=== PATIENT | female | born 1955 | race Caucasian/White ===

== ENCOUNTER → 2016-07-14 | Outpatient (CLI) | payer BC ==
--- NOTE | 2016-07-14 14:21 | MAMMOGRAPHY REPORT ---
UNILATERAL RIGHT DIGITAL DIAGNOSTIC MAMMOGRAM TOMOSYNTHESIS WITH CAD: 07/14/2016 CLINICAL HISTORY: 61-year-old woman presents for follow-up in the right breast. She is [address] atus post treatment for right breast cancer and 6 months status post benign stereotactic biopsy of m icrocalcifications near the surgical site in the right breast. TECHNIQUE: Right breast CC and MLO 2-D digital and tomosynthesis images; spot magnification right CC and ML views were obtained. Current study was also evaluated with a Computer Aided Detection (CAD) system. COMPARISON: Comparison is made to exams dated: 01/21/2016 mammogram, 11/14/2014 ultrasound, 11/14/2014 mammogram, 10/16/2014 mammogram, 08/04/2013 mammogram, and 08/01/2012 mammogram - [facility]. BREAST COMPOSITION: There are scattered areas of fibroglandular density in the right breast. FINDINGS: There is expected architectural distortion, and associated surgical clips in the lower inn er posterior right breast, at the site of prior lumpectomy. A dumbbell-shaped metallic biopsy marke r remains in place within the right lower inner quadrant as well, from previous benign stereotactic biopsy. No new suspicious mass, architectural distortion or cluster of microcalcifications is seen within the right breast. IMPRESSION: ACR-BI-RADS CATEGORY 3: PROBABLY BENIGN Stable postsurgical and post biopsy changes in the right lower inner quadrant, without mammographic evidence of malignancy. Annual bilateral mammography is due in 6 months. These results and recomme ndations were discussed with the patient at the time of the exam. Approximately 10% of breast cancers are not detected with mammography. A negative mammographic repor t should not delay biopsy if a clinically suggestive mass is present. Komal Marin M.D. ay/:07/14/2016 10:15:02 Keypunch Operator: Fatou FERREIRA(Nikunj)(Kaylah), [facility] letter sent: Follow Up Recommended 3 BI-RADS Code: ACR-BI-RADS Category 3: Probably Benign
== END | disposition home or self-care (01) ==
LOC: C.MAMM 09:20
PROVIDERS: ATTEND Surgery
DX: Z08 Encounter for follow-up examination after completed treatment for malignant neoplasm (principal); Z85.3 Personal history of malignant neoplasm of breast

== ENCOUNTER → 2017-01-11 | Outpatient (CLI) | payer BC ==
--- NOTE | 2017-01-11 15:12 | MAMMOGRAPHY REPORT ---
BILATERAL DIGITAL DIAGNOSTIC MAMMOGRAM TOMOSYNTHESIS WITH CAD AND TARGETED RIGHT ULTRASOUND: 7 CLINICAL HISTORY: 61-year-old woman with a personal history of right breast cancer, approximately 2 y ears status post breast conservation treatment. Also history of benign stereotactic biopsy near the surgical site in the right breast. Annual bilateral screening exam. TECHNIQUE: Bilateral CC and MLO 2-D digital and tomosynthesis images were obtained. Spot magnificati on right CC and ML views were obtained. A spot compression right CC 2-D digital and tomosynthesis im aging was also obtained. Current study was also evaluated with a Computer Aided Detection (CAD) syst em. COMPARISON: Comparison is made to exams dated: 07/14/2016 mammogram, 01/09/2016 mammogram, 11/14/2014 m ammogram, 10/16/2014 mammogram, 08/04/2013 mammogram, and 08/01/2012 mammogram - [facility]. BREAST COMPOSITION: There are scattered areas of fibroglandular density in both breasts. FINDINGS: There is expected architectural distortion and associated surgical clips in the 3:00 middle to posterior right breast, at the site of prior lumpectomy. In the bowel-shaped metallic biopsy mar ker is also seen at the surgical site. There is a 5 mm nodular asymmetry in the lateral posterior ri ght breast on the CC view but is increasingly conspicuous compared to prior mammograms. An additiona l spot compression view including tomosynthesis images was obtained in this area and the asymmetry pa rtially effaces with the supplemental mammographic views. No definite persistent mass on the tomosyn thesis images. Further evaluation with ultrasound was performed. No other new suspicious mass, arch itectural distortion or cluster of microcalcifications is seen bilaterally. Targeted ultrasound was performed throughout the lateral right breast. Normal fibroglandular tissue is seen without a discrete solid or cystic mass. IMPRESSION: ACR-BI-RADS CATEGORY 3: PROBABLY BENIGN, TARGETED ULTRASOUND ACR-BI-RADS CATEGORY 3: PRO BABLY BENIGN 1. There are stable, expected post treatment changes in the right breast. 2. A 5 mm nodular asymmetry in the lateral posterior right breast partially effaces with additional supplemental mammographic views. There is no definite persistent mass on the corresponding tomosynth esis images, and no suspicious sonographic correlate was seen. This most likely represented normal o verlapping fibroglandular tissue, however, a short interval follow-up diagnostic right mammogram and possible ultrasound is recommended to ensure stability in 6 months. 3. Stable mammographic appearance of the left breast, without mammographic evidence of malignancy. Advise follow-up in 1 year. Approximately 10% of breast cancers are not detected with mammography. A negative mammographic report should not delay biopsy if a clinically suggestive mass is present. Komal Marin M.D. ay/:01/11/2017 12:29:03 Manager Of Disaster Recovery: Fatou FERREIRA(R)(M), [facility] letter sent: Follow Up Recommended 3 BI-RADS Code: ACR-BI-RADS Category 3: Probably Benign Ultrasound BI-RADS: ACR-BI-RADS Category 3: Pr obably Benign
== END | disposition home or self-care (01) ==
LOC: C.MAMM 10:52
PROVIDERS: ATTEND Surgery
DX: N64.89 Other specified disorders of breast (principal); Z85.3 Personal history of malignant neoplasm of breast; Z08 Encounter for follow-up examination after completed treatment for malignant neoplasm

== ENCOUNTER → 2017-01-13 | Outpatient (CLI) | payer BC ==
[2017-01-13 13:17] LABS: BASO % 0.2 %; BASO ABS # 0.01 K/uL (0-0.2); COMPLETE YES; EOS % 3.9 %; HEMATOCRIT 43.9 % (37-47); IG% 0.2 %; LYMPH % 28.8 %; LYMPH ABS # 1.32 K/uL (1.2-3.4); MEAN CELL VOLUME 87.1 fL (80-100); MEAN CORPUSCULAR HEMOGLOBIN 28.4 pg (25-34); MEAN CORPUSCULAR HGB CONC 32.6 g/dl (32-36); MEAN PLATELET VOLUME 10.5 fL (7.4-10.4); MONO % 5.9 %; PLATELET COUNT 219 K/uL (130-400); RED BLOOD COUNT 5.04 M/uL (4.2-5.4); WHITE BLOOD COUNT 4.58 K/uL (4.8-10.8)
[2017-01-13 13:37] LABS: BLOOD UREA NITROGEN 13 mg/dl (7-18); BUN/CREATININE RATIO 19.1 (10-20); CALCIUM 9.1 mg/dl (8.5-10.1); CARBON DIOXIDE 25 mmol/L (21-32); CHLORIDE 108 mmol/L (98-107); CHOLESTEROL 177 mg/dl (0-200); CREATININE 0.67 mg/dl (0.60-1.20); GLUCOSE 95 mg/dl (70-99); SODIUM 141 mmol/L (136-145)
[2017-01-13 13:47] LABS: ALB/GLOB RATIO 1.5 (0.9-2); ALKALINE PHOSPHATASE 91 U/L (45-117); ALT/SGPT 30 U/L (12-78); AST/SGOT 22 U/L (15-37); CHOLESTEROL/HDL RATIO 3.8; HDL CHOLESTEROL 47 mg/dl; LDL CHOLESTEROL CALCULATED 98 mg/dl; TRIGLYCERIDES 161 mg/dl (0-150); VERY LOW DENSITY LIPOPROT CALC 32 mg/dl
== END | disposition home or self-care (01) ==
LOC: C.LABMFLN 08:11
PROVIDERS: ATTEND Family Medicine
DX: C50.919 Malignant neoplasm of unspecified site of unspecified female breast (principal); E78.5 Hyperlipidemia, unspecified; E03.9 Hypothyroidism, unspecified; R53.83 Other fatigue

== ENCOUNTER → 2017-07-15 | Outpatient (CLI) | payer BC ==
--- NOTE | 2017-07-15 15:54 | MAMMOGRAPHY REPORT ---
UNILATERAL RIGHT DIGITAL DIAGNOSTIC MAMMOGRAM TOMOSYNTHESIS WITH CAD: 07/15/2017 CLINICAL HISTORY: History of right breast cancer status post lumpectomy November 2014. Also with a histo ry of a benign stereotactic biopsy near the surgical bed in the right breast. The patient presents f or short interval follow-up of the right breast asymmetry. She reports no palpable lumps or other co mplaints. TECHNIQUE: Breast tomosynthesis in addition to standard 2D mammography was performed. Current study was also evaluated with a Computer Aided Detection (CAD) system. Right CC and MLO 2-D and tomosynthe sis images and spot magnification right cc and ML views were obtained. COMPARISON: Comparison is made to exams dated: 01/11/2017 ultrasound, 01/11/2017 mammogram, 07/14/2016 mammogram, 01/09/2016 mammogram, 11/14/2014 mammogram, and 10/16/2014 mammogram - [facility]. BREAST COMPOSITION: There are scattered areas of fibroglandular density in the right breast. FINDINGS: The previously described asymmetry seen within the right lateral breast on the CC view is less prominent on the current exam and has the appearance of normal fibroglandular tissue on the curr ent exam. The remainder of the right breast is stable compared to prior exams, without suspicious ma sses, calcifications, or areas of architectural distortion noted. There are stable post surgical luana nges in the right medial breast from prior lumpectomy, including stable architectural distortion and surgical clips at the lumpectomy bed. A biopsy clip from prior benign stereotactic biopsy is also se en at the surgical bed. An asymmetry seen within the right superior posterior breast on the MLO view is stable dating back to at least the December 2015 exam and has the appearance of normal fibroglandular tissue on the tomosynthesis images. IMPRESSION: ACR BI-RADS CATEGORY 2: BENIGN The right lateral breast asymmetry is less prominent and is benign and compatible with normal fibrogl andular tissue. There is no mammographic evidence of malignancy in the right breast. The patient is due for annual mammography December 2017; I would recommend the patient remain a diagnostic patient for this exam in case any additional images of the lumpectomy bed need to be obtained. The patient has been verbally notified of the results. Approximately 10% of breast cancers are not detected with mammography. A negative mammographic report should not delay biopsy if a clinically suggestive mass is present. Angela Shipman M.D. ah/:07/15/2017 10:57:10 Sole Conforming Machine Operator: Fatou VALDIVIA)(Kaylah), [facility] letter sent: Normal 1/2 BI-RADS Code: ACR BI-RADS Category 2: Benign
== END | disposition home or self-care (01) ==
LOC: C.MAMM 10:31
PROVIDERS: ATTEND Family Medicine
DX: Z08 Encounter for follow-up examination after completed treatment for malignant neoplasm (principal); C50.911 Malignant neoplasm of unspecified site of right female breast

== ENCOUNTER → 2017-08-16 | Outpatient (CLI) | payer BC ==
--- NOTE | 2017-08-16 11:07 | DIAGNOSTIC IMAGING REPORT ---
LEFT HIP STEROID INJECTION UNDER FLUOROSCOPIC GUIDANCE CLINICAL HISTORY: Degenerative joint disease. Left hip pain. PROCEDURE: The risks, benefits, and alternatives to the procedure were discussed with the patient. Written informed consent was obtained. The patient was placed supine on the fluoroscopy table, and a left hip injection was performed under fluoroscopic guidance. The area was prepped and draped in the usual sterile fashion. The skin and soft tissues anesthetized with local 1% lidocaine. The left hip joint was accessed utilizing a 22-gauge needle, and intra-articular positioning was confirmed by injecting a small volume of Optiray 300. The prescribed dosage of 2 cc of betamethasone and 8 cc of 0.5%. bupivacaine was then injected into the joint space. The procedure was well tolerated and without immediate complication. The patient left the department in satisfactory condition. FLUOROSCOPY TIME: 6 seconds. IMPRESSION: Unremarkable steroid injection of the left the under fluoroscopic guidance. Electronically signed by: Leif Arellano M.D. 08/16/2017 11:06 AM Dictated Date/Time: 08/16/2017 11:04 AM
== END | disposition home or self-care (01) ==
LOC: C.RADBC 09:47
PROVIDERS: ATTEND Orthopaedic Surgery
DX: M16.12 Unilateral primary osteoarthritis, left hip (principal)

== ENCOUNTER → 2018-01-12 | Outpatient (CLI) | payer BC ==
[~2018-01-12] MED LIST: ACET-1311 PO; ASPEC325 PO; CETI10TA84 PO; CHOL1000 PO; DIPH25CA65 PO; IBUP-103 PO; LEVO25TA5 PO; MULT-506 PO; PANT40TA PO; ROSU20TA24 PO; ULT50X PO; VITA400C28 PO
--- NOTE | 2018-01-13 08:11 | MAMMOGRAPHY REPORT ---
BILATERAL DIGITAL DIAGNOSTIC MAMMOGRAM TOMOSYNTHESIS WITH CAD AND RIGHT ULTRASOUND: 01/12/2018 CLINICAL HISTORY: 62-year-old woman with a history of prior right breast cancer status post breast co nservation treatment presents at time of annual bilateral screening exam. Recently, her new provider felt possible thickening near her area of surgery on clinical breast exam. She also underwent stereot actic biopsy of calcifications near the lumpectomy bed in the right breast, which yielded benign path ology results. TECHNIQUE: The study was acquired using full field digital technology and interpreted from soft copy. Tomosynthesis (3D imaging) was done in the CC and MLO projections. A C-view reconstruction was then done. Current study was also evaluated with a Computer Aided Detection (CAD) system. COMPARISON: Comparison is made to exams dated: 07/15/2017 mammogram, 01/11/2017 mammogram, 07/14/2016 m ammogram, 01/21/2016 mammogram, 01/09/2016 mammogram, and 11/28/2014 mammogram - [facility]. BREAST COMPOSITION: There are scattered areas of fibroglandular density in both breasts. FINDINGS: There is expected architectural distortion, skin thickening and irregularity, surgical clip s and a double-shaped biopsy marker clip in the lower inner posterior right breast, denoting the site of prior surgeries and biopsy. No new suspicious masses, calcifications, areas of architectural dis tortion or unexpected skin thickening is noted bilaterally. Targeted ultrasound was performed in the area of thickening pointed out by the patient, near the skin surgical scar in the 3:00 through 5:00 right breast. There is sonographic evidence of linear hypoec hoic scar tissue, without evidence of a suspicious solid or cystic mass. IMPRESSION: , ULTRASOUND ACR BI-RADS CATEGORY 2: BENIGN Stable bilateral mammograms including postsurgical and postbiopsy changes in the right breast, withou t mammographic evidence of malignancy bilaterally. There is no targeted sonographic evidence of olivia gnancy in the right breast in the area of thickening identified by the patient's provider. Therefore , continued clinical follow-up is recommended, as biopsy of a clinically suspicious mass should not b e precluded by negative imaging. Otherwise recommend routine screening mammography in 1 year (12/2018 ). These results and recommendation were discussed with the patient at the time of the exam. Approximately 10% of breast cancers are not detected with mammography. A negative mammographic report should not delay biopsy if a clinically suggestive mass is present. Komal Marin M.D. ay/:01/12/2018 16:43:33 [employer]: RT Jennifer(R)(M), [facility]; Madi Cobb [facility] letter sent: Normal 1/2 OVERALL STUDY BIRADS: 2 Benign
== END ==
LOC: C.MAMM 10:25
PROVIDERS: ATTEND Surgery
DX: Z85.3 Personal history of malignant neoplasm of breast (principal); N64.59 Other signs and symptoms in breast; Z98.890 Other specified postprocedural states

== ENCOUNTER → 2018-01-28 | Outpatient (CLI) | payer BC ==
[2018-01-28 12:32] LABS: BASO % 0.4 %; BASO ABS # 0.02 K/uL (0-0.2); EOS % 2.4 %; EOS ABS # 0.13 K/uL (0-0.5); HEMATOCRIT 41.3 % (37-47); HEMOGLOBIN 13.8 g/dL (12.0-16.0); IG# 0.02 K/uL (0.00-0.02); LYMPH % 26.9 %; LYMPH ABS # 1.43 K/uL (1.2-3.4); MEAN CELL VOLUME 86.8 fL (80-100); MEAN CORPUSCULAR HGB CONC 33.4 g/dl (32-36); MEAN PLATELET VOLUME 10.5 fL (7.4-10.4); MONO % 5.8 %; MONO ABS # 0.31 K/uL (0.11-0.59); NEUT % 64.1 %; NEUT ABS # 3.41 K/uL (1.4-6.5); PLATELET COUNT 260 K/uL (130-400); RED CELL DISTRIBUTION WIDTH CV 14.1 % (11.5-14.5); RED CELL DISTRIBUTION WIDTH SD 44.8 fL (36.4-46.3); WHITE BLOOD COUNT 5.32 K/uL (4.8-10.8)
[2018-01-28 12:59] LABS: ALBUMIN 4.3 gm/dl (3.4-5.0); ALKALINE PHOSPHATASE 88 U/L (45-117); ALT/SGPT 25 U/L (12-78); AST/SGOT 21 U/L (15-37); BLOOD UREA NITROGEN 14 mg/dl (7-18); CALCIUM 9.6 mg/dl (8.5-10.1); CARBON DIOXIDE 25 mmol/L (21-32); CHOLESTEROL 172 mg/dl (0-200); CREATININE 0.65 mg/dl (0.60-1.20); GLUCOSE 102 mg/dl (70-99); LDL CHOLESTEROL CALCULATED 91 mg/dl; SODIUM 139 mmol/L (136-145); TOTAL PROTEIN 7.3 gm/dl (6.4-8.2)
== END | disposition home or self-care (01) ==
LOC: C.LABMFLN 10:31
PROVIDERS: ATTEND Family Medicine
DX: E78.5 Hyperlipidemia, unspecified (principal); E03.9 Hypothyroidism, unspecified; Z96.649 Presence of unspecified artificial hip joint

== ENCOUNTER 2025-06-15 05:35 | Observation (INO) ==
--- NOTE | 2025-06-15 06:48 | Emergency Department Note ---
Impression & Plan Colitis, Bloody stools, Abdominal pain, LLQ ED Provider Note Provider: Raji Ames MD CHIEF COMPLAINT: Lower abdominal pain, bloody stools HISTORY OF PRESENT ILLNESS: Patient is a 70-year-old female significant past medical history of breast cancer, hypertension, and hypothyroidism presenting here today reporting waking suddenly around 2 AM with sudden severe lower left lower abdominal pain. Has had a bloody stool here. Some nausea but no vomiting. No chest pain or shortness of breath. He is feeling cold. No history of similar. No trauma. Went to bed well last night. No suspect food intake, recent international travel, or sick contacts. He is on aspirin but no other blood thinners. Patient is quite anxious and tearful she has not had pain like this before. Has had a prior tubal as well as an appendectomy. Has not take anything for pain prior to arrival. Did take some Pepto-Bismol without improvement. Reports that they did just come back from [facility] to the [facility]. They do have well water at home. is well. PAST MEDICAL HISTORY: As noted above MEDICATIONS: Reviewed home medications SOCIAL HISTORY: PHYSICAL EXAM: GENERAL: alert and oriented in no acute distress on stretcher, tearful at times Head: normocephalic and atraumatic EYES: No injection, purulent discharge or icterus. NECK: Trachea midline. Supple. ENT: Mucous membranes pink and moist. LUNGS: Airway patent. No retractions or tachypnea HEART: Regular rate and rhythm. No chest wall tenderness ABDOMEN: Soft significant left lower quadrant tenderness. SKIN: Acyanotic, warm, dry, without rashes EXTREMITIES: Without swelling, tenderness or deformity NEUROLOGICAL: No focal deficits. No aphasia. No facial droop or slurred speech. Ambulatory. EK beats. Normal sinus rhythm. No PVC or PAC. No acute ST segment elevation or depression with some diffuse T wave inversions. QTc 442. CONTINUOUS CARDIAC MONITORING: was ordered and showed a heart rate of bpm in Patient's laboratory studies and imaging reviewed. Differential includes Appendicitis, ovarian cyst, ovarian torsion, ectopic , TOA, PID, infections, diverticulitis, UTI, obstruction, mesenteric ischemia, aortic pathology, inflammatory bowel disease, renal colic, PUD, pancreatitis, biliary pathology, hernia, volvulus, constipation, as well as other pathologies. IMPRESSION/MEDICAL DECISION MAKING: Patient is significant left lower quadrant pain. Has had some bleeding. Not on blood thinners. No trauma. No suspect food intake, sick contact, or travel. Question this could be diverticulitis but she does have a history. Will obtain CT imaging abdomen pelvis. Lower suspicion for dissection but could possibly be ischemia given the severity of her pain. Given some fluids and lactate was obtained and sent for CT angiogram of the abdomen pelvis. Doubt this represents a significant upper GI bleed given lack of risk factors as well as location of her pain. Urinalysis here question with little bit of blood and some bacteria. Blood work here with leukocytosis 14 4. No anemia. No severe electrolyte abnormalities noted but an elevated lactate of 3.1. Again received a liter of IV fluid here. No evidence of hepatitis or pancreatitis. Troponin undetectably low. CT scan per radiology report with evidence of colitis. Given this and the questionable urine we will cover with antibiotics. She is in a fair amount of some discomfort. Mild lactate elevation. No ischemic findings noted on CT report. Will bring in for hydration and pain control and cover with Zosyn. Case was discussed with the [facility] hospitalist team. DIAGNOSIS: Colitis, abdominal pain, bloody stools DISPOSITION: Hospitalist will evaluate Patient was agreeable with this plan. Past Med/Surg History Problem List (Updated 06/15/25 @ 09:46 by Raji Ames M.D.) Abdominal pain, LLQ (Acute) Bloody stools (Acute) Colitis (Acute) Prediabetes Postmenopausal Greater trochanteric bursitis of right hip Hypertension Abnormal electrocardiogram (Acute) Acid reflux disease (Acute) Adenomatous polyp of colon (Acute) Breast cancer (Acute) lumptectomy and xrt no medical therapy Hyperlipidemia (Acute) Hypothyroidism (Acute) More than 50 percent stenosis of right internal carotid artery (Acute) Medical History No pertinent past medical history Surgical History H/O partial mastectomy Status post hip replacement H/O dilation and curettage S/P tubal ligation H/O colonoscopy S/P appendectomy Family History Father Emphysema, unspecified Mother FH: colonic polyps Colonic polyp Sister FH: colonic polyps Colonic polyp Denies family history of Ovarian cancer Prostate cancer Myocardial infarction Breast cancer Colorectal cancer Social History Smoking Status: Never smoker Second Hand Exposure: Yes; Do You Dip or Chew Tobacco: No; Hx Alcohol Use: Yes Alcohol type: wine Alcohol Intake Frequency: 2-3 x/Week Hx Substance Use: No Preferred Language: Spanish Visual Impairment: Limited Hearing Ability: Use of Hearing Aid marital status: Current Living Situation: Spouse current occupational status: retired How many Children do You have: 1 Feels Safe at Home: Yes Childhood Exposure to Second-Hand Smoke: Yes Diet: low salt and regular caffeine: No during the past year weight has: remained stable Dental Care, Regularly: Yes Physical Activity Frequency: 1-2 Times per Week Physical Activity Frequency Comment: Rides bike, walking Seatbelt Use: always Sunscreen Use: Yes Do you think of yourself as: straight/heterosexual Gender Identity: Female Assistive Devices: Glasses and Hearing Aid - Bilateral Allergies Allergies Allergy/AdvReac Type Severity Reaction Status Date / Time morphine Allergy Unknown NAUSEA AND Verified 05/17/25 10:55 VOMITNG Home Meds Home Medications Medication Instructions Recorded Confirmed acetaminophen 500 mg tablet 1,000 mg PO Q6H PRN Pain 01/05/20 06/15/25 cetirizine 10 mg disintegrating 10 mg PO DAILY 01/05/20 06/15/25 tablet amoxicillin 500 mg tablet 2,000 mg PO DIRECTED PRN dental 06/15/25 06/15/25 jocelyn rosuvastatin 20 mg tablet 0 mg PO DAILY 06/15/25 06/15/25 Previous Rx's Medication Instructions Recorded cholecalciferol (vitamin D3) 25 1,000 units PO DAILY #90 caps 06/16/19 mcg (1,000 unit) capsule multivitamin 1 tab PO QAM #30 tabs 06/16/19 vitamin E (dl, acetate) 180 mg 400 units PO DAILY #30 caps 06/16/19 (400 unit) capsule aspirin 81 mg tablet,delayed 81 mg PO DAILY #90 tabs 01/31/20 release (Adult Low Dose Aspirin) ondansetron 4 mg disintegrating 4 mg PO Q6 PRN nausea and vomiting 05/08/22 tablet #20 tabs levothyroxine 50 mcg tablet 50 mcg PO DAILY #90 tabs 07/31/24 (Synthroid) pantoprazole 40 mg tablet,delayed 40 mg PO DAILY PRN gerd #90 tabs 11/16/24 release metformin 500 mg tablet,extended 500 mg PO DAILY #90 tabs 05/17/25 release 24 hr lisinopril 30 mg tablet 30 mg PO DAILY #90 tabs 05/29/25 Results & Data (ED) Vital Signs Vital Signs - 24 hr 06/15/25 05:41 06/15/25 05:54 06/15/25 06:15 Temperature 36.7 C Temperature Source Oral Pulse Rate 77 72 Pulse Rate [Apical] 70 Pulse Rate from SpO2 Sensor Pulse Rhythm [Apical] Regular Respiratory Rate 18 18 Respiratory Effort / Characteristics Non-Labored Spontaneous Respiratory Depth Normal Respiratory Pattern Regular Blood Pressure 134/72 Blood Pressure [Right Arm] 145/77 H Blood Pressure Mean 92 Blood Pressure Mean [Right Arm] 99 Blood Pressure Position Sitting Pulse Oximetry 95 96 Oxygen Delivery Method Room Air Room Air Sepsis Recent Fever Within 48 Hours No Sepsis New/Unexplained Change in Mental Status N/A Sepsis Action Taken by Nursing No Action Required 06/15/25 06:15 06/15/25 08:00 06/15/25 10:30 Temperature Temperature Source Pulse Rate 71 Pulse Rate [Apical] 68 Pulse Rate from SpO2 Sensor 79 Pulse Rhythm [Apical] Respiratory Rate 18 18 Respiratory Effort / Characteristics Non-Labored Spontaneous Respiratory Depth Normal Respiratory Pattern Blood Pressure 173/75 H Blood Pressure [Right Arm] 139/75 Blood Pressure Mean 107 Blood Pressure Mean [Right Arm] 96 Blood Pressure Position Pulse Oximetry 93 97 98 Oxygen Delivery Method Room Air Room Air Room Air Sepsis Recent Fever Within 48 Hours Sepsis New/Unexplained Change in Mental Status Sepsis Action Taken by Nursing 06/15/25 11:00 Temperature Temperature Source Pulse Rate Pulse Rate [Apical] Pulse Rate from SpO2 Sensor 78 Pulse Rhythm [Apical] Respiratory Rate Respiratory Effort / Characteristics Respiratory Depth Respiratory Pattern Blood Pressure 152/87 H Blood Pressure [Right Arm] Blood Pressure Mean 108 Blood Pressure Mean [Right Arm] Blood Pressure Position Pulse Oximetry 98 Oxygen Delivery Method Sepsis Recent Fever Within 48 Hours Sepsis New/Unexplained Change in Mental Status Sepsis Action Taken by Nursing Laboratory Data 06/15/25 07:37 06/15/25 07:37 Lab Results 12/19/25 12/19/25 12/19/25 Range/Units 06:33 07:37 07:39 WBC 14.45 H (4.8-10.8) K/ul RBC 4.87 (4.20-5.40) M/uL Hgb 14.3 (12.0-16.0) g/dL POC Hgb 14.6 (12.0-16.0) g/dl Hct 41.7 (37.0-47.0) % POC Hct 43 (37-47) % MCV 85.6 (80.0-100.0) fL MCH 29.4 (25.0-34.0) pg MCHC 34.3 (32.0-36.0) g/dL RDW Std Deviation 42.9 (36.4-46.3) fL RDW Coeff of R[place] 13.8 (11.5-14.5) % Plt Count 188 (130-400) K/uL MPV 10.6 (9.4-12.4) fL Immature Gran % (Auto) 0.3 % Neut % (Auto) 89.4 % Lymph % (Auto) 5.8 % [place] % (Auto) 4.2 % Eos % (Auto) 0.1 % Baso % (Auto) 0.2 % Neut # (Auto) 12.92 H (1.40-6.50) K/uL Lymph # (Auto) 0.84 L (1.20-3.40) K/uL [place] # (Auto) 0.60 H (0.11-0.59) K/uL Eos # (Auto) 0.02 (0.00-0.50) K/uL Baso # (Auto) 0.03 (0.00-0.20) K/uL Immature Gran # (Auto) 0.04 (0.01-0.20) K/uL PT 11.0 (9.0-12.0) Seconds INR 1.0 (0.9-1.1) POC Sodium 141 (135-144) mmol/L Sodium 139 (136-145) mmol/L POC Potassium 3.7 (3.3-5.0) mmol/L Potassium 3.9 (3.5-5.1) mmol/L POC Chloride 107 (101-112) mmol/L Chloride 107 (98-107) mmol/L Carbon Dioxide 21 (21-32) mmol/L POC Total CO2 19 L (24-31) mmol/L Anion Gap 11 (3-11) POC Anion Gap 20.0 (16-25) mmol/L POC BUN 25 H (7-18) mg/dl BUN 24 H (6-23) mg/dl Creatinine 0.81 (0.6-1.2) mg/dl POC Creatinine 0.8 (0.6-1.3) mg/dl Est Cr Clr Drug Dosing 68.7 ml/min eGFR 78.53 BUN/Creatinine Ratio 29.6 H (10-20) Glucose 139 H (70-99(Fasting)) mg/dl POC Glucose (other) 123 H (70-99) mg/dl Lactate 3.1 H* (0.4-2.0) mmol/L Calcium 9.4 (8.6-10.3) mg/dl POC Ioniz Calcium Gretchen 1.12 (1.12-1.32) mmol/l Total Bilirubin 0.6 (0.2-1.0) mg/dl AST 21 (13-39) U/L ALT 17 (7-52) U/L Alkaline Phosphatase 53 (34-104) U/L Troponin I High Sens < 2.3 (0-14) pg/ml Total Protein 6.6 (6.0-8.3) gm/dl Albumin 4.4 (3.4-5.0) gm/dl Globulin 2.2 L (2.5-4.0) gm/dl Albumin/Globulin Ratio 2.0 (0.9-2) Lipase 9 L (11-82) U/L Urine Color Yellow Urine Appearance Clear (Clear) Urine pH 5.0 (4.5-7.5) Ur Specific [place] 1.014 (1.000-1.030) Urine Protein 1+ H (Negative) Urine Glucose (UA) Negative (Negative) Urine Ketones Trace H (Negative) Urine Blood 3+ H (Negative) Urine Nitrite Negative (Negative) Urine Bilirubin Negative (Negative) Urine Urobilinogen Negative (Negative) Ur Leukocyte Esterase 1+ H (Negative) Urine WBC (Auto) 0-5 (0-5) /hpf Urine RBC (Auto) 3-5 H (0-2) /hpf U Hyaline Cast (Auto) 6-10 H (0-2) /lpf U Epithel Cells (Auto) 3-5 H (0-2) /hpf Urine Bacteria (Auto) 3+ H (None Seen) Urine Comment Administered Medications Discontinued Medications Fentanyl Citrate (Fentanyl Citrate Pf 100 Mcg/2 Ml Vial) 50 mcg IV NOW STA Stop: 06/15/25 06:45 Last Admin: 06/15/25 07:34 Dose: 50 mcg Documented By: Fentanyl Citrate (Fentanyl Citrate Pf 100 Mcg/2 Ml Vial) 50 mcg IV NOW STA Stop: 06/15/25 09:45 Last Admin: 06/15/25 10:27 Dose: 50 mcg Documented By: Sodium Chloride (Nss) 1,000 mls @ 999 mls/hr IV .Q1H1M ONE Stop: 06/15/25 07:44 Last Infusion: 06/15/25 08:35 Dose: Infused Documented By: Admin: 06/15/25 07:34 Dose: 999 mls/hr Documented By: Piperacillin Sod/Tazobactam Sod (Zosyn) 4.5 gm in 100 mls @ 200 mls/hr IV NOW ONE; Protocol Stop: 06/15/25 10:13 Last Admin: 06/15/25 10:27 Dose: 200 mls/hr Documented By: HARLEY Ioversol (Optiray 320 125ml) 120 ml IV ONCE ONE Stop: 06/15/25 08:19 Last Admin: 06/15/25 08:19 Dose: 120 ml Documented By: CLEVE Ondansetron HCl (Ondansetron Inj 2 Mg/Ml 2 Ml Vial) 4 mg IV NOW STA Stop: 06/15/25 06:45 Last Admin: 06/15/25 07:32 Dose: 4 mg Documented By: HARLEY Imaging Data Radiologist's Impression: Abdomen/Pelvis CTA 06/15/25 06:43 CT ANGIOGRAM OF THE ABDOMEN AND PELVIS CLINICAL HISTORY: Left lower quadrant abdominal pain. Hematochezia. COMPARISON STUDY: Abdominal x-rays dated 05/08/2022. TECHNIQUE: Following the IV administration of 120 cc of Optiray 320, CT angiogram of the abdomen and pelvis was performed from the lung bases the proximal femora. Images are reviewed in the axial, sagittal, and coronal planes. 3-D MIPS images are created and assessed. IV contrast was administered without complication. A dose lowering technique was utilized adhering to the principles of ALARA. CT DOSE: 1501.05 mGy.cm FINDINGS: Lower chest: The heart is normal in size and without pericardial effusion. There is bibasilar scarring/atelectasis. No airspace consolidation or pleural effusion is identified. Liver: The contrast-enhanced liver is enlarged, measuring 18.5 cm in length. Attenuation is diffusely diminished indicating steatosis. There are foci of geographic fatty sparing. There is no intrahepatic biliary ductal dilatation. The main portal veins appear patent. Gallbladder: Unremarkable. Spleen: Normal in size and attenuation noting heterogeneous arterial phase enhancement. Pancreas: Unremarkable. Adrenal glands: Unremarkable. Kidneys: The contrast enhanced kidneys are normal in size and without hydronephrosis. The kidneys enhance symmetrically. Abdominal aorta and iliac arteries: The abdominal aorta is normal in course and caliber noting mild atherosclerotic calcification. No dissection is seen. The iliac arteries are widely patent bilaterally. Major branches of the abdominal aorta: The celiac trunk, superior mesenteric, and inferior mesenteric arteries are widely patent. Hepatic arterial anatomy is conventional. The splenic artery is patent. Single bilateral renal arteries are widely patent. Bowel: There is no bowel obstruction. There is a long segment of wall thickening and edema involving the left colon. This extends from the mid transverse colon to the rectosigmoid. There is mild pericolonic inflammation. The appearance is consistent with a nonspecific colitis. There are several duodenal diverticula. The appendix is not visualized. No intraluminal contrast is identified to suggest a site of active GI bleeding. Peritoneum: There is no intraperitoneal free air or abdominal ascites. There is a fat-containing umbilical hernia. Lymphadenopathy: None. Pelvic viscera: Evaluation of the left hip is degraded by streak artifact from a left hip arthroplasty. The bladder is normal as visualized. There are calcified uterine fibroids. No adnexal lesion is seen. Skeletal structures: The skeletal structures are osteopenic. There is mild lumbosacral spondylosis. Bilateral pars defects are seen at L5. Degenerative sclerosis is seen in the sacroiliac joints. No destructive bony lesions are seen. A left hip arthroplasty is in place. Soft tissues: Postsurgical changes suggested in the right breast. IMPRESSION: 1. Findings are consistent with a nonspecific colitis of the left colon. 2. Unremarkable CT angiogram of the abdominal aorta and its major branches. 3. The liver is enlarged and steatotic. 4. Fibroid uterus. 5. Additional findings as above. ACT 112: Negative or not required by law. Electronically signed by: Leif Arellano M.D. 06/15/2025 9:45 AM Discharge Plan Visit Data Chief Complaint: Abdominal Pain Stated Complaint: ABD PAIN ED Provider: Raji Ames Discharge Problem: Colitis, Bloody stools, Abdominal pain, LLQ Patient Disposition: Being Evaluated by Hospitalist Condition: Fair Forms Stand Alone Forms: [facility] Prescriptions Prescriptions: No Action aspirin [Adult Low Dose Aspirin] 81 mg tablet,delayed release (DR/EC) 81 mg PO DAILY Qty: 90 3RF Patient Comments: 06/14- otc unable to verify levothyroxine [Synthroid] 50 mcg tablet 50 mcg PO DAILY Qty: 90 3RF lisinopril 30 mg tablet 30 mg PO DAILY Qty: 90 3RF vitamin E (dl, acetate) 400 unit capsule 400 units PO DAILY Qty: 30 0RF Patient Comments: 06/14- otc unable to verify multivitamin tablet 1 tab PO QAM Qty: 30 0RF Patient Comments: 06/14- otc unable to verify cholecalciferol (vitamin D3) 25 mcg (1,000 unit) capsule 1,000 units PO DAILY Qty: 90 0RF Patient Comments: 06/14- otc unable to verify acetaminophen 500 mg tablet 1,000 mg PO Q6H PRN (Reason: Pain) Patient Comments: 06/14- otc unable to verify cetirizine 10 mg tablet,disintegrating 10 mg PO DAILY Patient Comments: 06/14- otc unable to verify metformin 500 mg tablet extended release 24 hr 500 mg PO DAILY Qty: 90 3RF pantoprazole 40 mg tablet,delayed release (DR/EC) 40 mg PO DAILY PRN (Reason: gerd) Qty: 90 3RF Patient Comments: 06/15- last filled 11/16 90 day supply #90 ondansetron 4 mg tablet,disintegrating 4 mg PO Q6 PRN (Reason: nausea and vomiting) Qty: 20 0RF amoxicillin 500 mg tablet 2,000 mg PO DIRECTED PRN (Reason: dental jocelyn) Patient Comments: 06/14-no fill history unable to verify Rx Instructions: 4 tabs 1 hour prior to procedure rosuvastatin 20 mg tablet 0 mg PO DAILY Patient Comments: 06/15-last filled 01/08 90 day supply #90 Referrals Referrals: Cari Ferrer DO [Primary Care Provider] -
[2025-06-15 06:59] LABS: Appearance Urine Clear (Clear); Bacteria Urine Automated 3+ (None Seen); Glucose Urine UA Negative (Negative); WBC Urine Automated 0-5 /hpf (0-5)
[2025-06-15] MEDS: ONDANSETRON INJ 2 MG/ML 2 ML VIAL IV STA (07:32)
[2025-06-15] MEDS: SODIUM CHLORIDE 0.9% 1,000 ML IV ONE (07:34)
[2025-06-15 08:04] LABS: Hematocrit (blood only) 41.7 % (37.0-47.0); Hemoglobin 14.3 g/dL (12.0-16.0); Immature Granulocytes # (auto) 0.04 K/uL (0.01-0.20); Immature Granulocytes % (auto) 0.3 %; Mean Corpuscular Hemoglobin 29.4 pg (25.0-34.0); Mean Corpuscular Volume 85.6 fL (80.0-100.0); Platelet Count 188 K/uL (130-400); RDW Standard Deviation 42.9 fL (36.4-46.3); Red Blood Count 4.87 M/uL (4.20-5.40); White Blood Count 14.45 K/ul (4.8-10.8)
[2025-06-15] MEDS: OPTIRAY 320 125ml IV ONE (08:19)
[2025-06-15 08:22] LABS: Alanine Aminotransferase 17.0 U/L (7-52); Albumin Globulin Ratio 2.0 (0.9-2); Albumin Level 4.4 gm/dl (3.4-5.0); Alkaline Phosphatase 53.0 U/L (34-104); Anion Gap 11.0 (3-11); Bilirubin,Total 0.6 mg/dl (0.2-1.0); Blood Urea Nitrogen 24.0 mg/dl (6-23); Calcium 9.4 mg/dl (8.6-10.3); Carbon Dioxide 21.0 mmol/L (21-32); Chloride 107.0 mmol/L (98-107); Creatinine Clr Calc Pharmacy 68.7 ml/min; Globulin 2.2 gm/dl (2.5-4.0); Glucose 139.0 mg/dl (70-99(Fasting)); Lipase 9.0 U/L (11-82); Potassium 3.9 mmol/L (3.5-5.1); Sodium 139.0 mmol/L (136-145); Total Protein 6.6 gm/dl (6.0-8.3)
[2025-06-15 08:34] LABS: INR 1.0 (0.9-1.1); Prothrombin Time 11.0 Seconds (9.0-12.0)
--- NOTE | 2025-06-15 09:47 | CT Scan Report ---
CT ANGIOGRAM OF THE ABDOMEN AND PELVIS CLINICAL HISTORY: Left lower quadrant abdominal pain. Hematochezia. COMPARISON STUDY: Abdominal x-rays dated 05/08/2022. TECHNIQUE: Following the IV administration of 120 cc of Optiray 320, CT angiogram of the abdomen and pelvis was performed from the lung bases the proximal femora. Images are reviewed in the axial, sagit bren, and coronal planes. 3-D MIPS images are created and assessed. IV contrast was administered witho ut complication. A dose lowering technique was utilized adhering to the principles of ALARA. CT DOSE: 1501.05 mGy.cm FINDINGS: Lower chest: The heart is normal in size and without pericardial effusion. There is bibasilar scarrin g/atelectasis. No airspace consolidation or pleural effusion is identified. Liver: The contrast-enhanced liver is enlarged, measuring 18.5 cm in length. Attenuation is diffusely diminished indicating steatosis. There are foci of geographic fatty sparing. There is no intrahepati c biliary ductal dilatation. The main portal veins appear patent. Gallbladder: Unremarkable. Spleen: Normal in size and attenuation noting heterogeneous arterial phase enhancement. Pancreas: Unremarkable. Adrenal glands: Unremarkable. Kidneys: The contrast enhanced kidneys are normal in size and without hydronephrosis. The kidneys enh ance symmetrically. Abdominal aorta and iliac arteries: The abdominal aorta is normal in course and caliber noting mild a therosclerotic calcification. No dissection is seen. The iliac arteries are widely patent bilaterally . Major branches of the abdominal aorta: The celiac trunk, superior mesenteric, and inferior mesenteric arteries are widely patent. Hepatic arterial anatomy is conventional. The splenic artery is patent. Single bilateral renal arteries are widely patent. Bowel: There is no bowel obstruction. There is a long segment of wall thickening and edema involving the left colon. This extends from the mid transverse colon to the rectosigmoid. There is mild pericol onic inflammation. The appearance is consistent with a nonspecific colitis. There are several duodena l diverticula. The appendix is not visualized. No intraluminal contrast is identified to suggest a s ite of active GI bleeding. Peritoneum: There is no intraperitoneal free air or abdominal ascites. There is a fat-containing umbi lical hernia. Lymphadenopathy: None. Pelvic viscera: Evaluation of the left hip is degraded by streak artifact from a left hip arthroplast y. The bladder is normal as visualized. There are calcified uterine fibroids. No adnexal lesion is se en. Skeletal structures: The skeletal structures are osteopenic. There is mild lumbosacral spondylosis. B ilateral pars defects are seen at L5. Degenerative sclerosis is seen in the sacroiliac joints. No celeste tructive bony lesions are seen. A left hip arthroplasty is in place. Soft tissues: Postsurgical changes suggested in the right breast. IMPRESSION: 1. Findings are consistent with a nonspecific colitis of the left colon. 2. Unremarkable CT angiogram of the abdominal aorta and its major branches. 3. The liver is enlarged and steatotic. 4. Fibroid uterus. 5. Additional findings as above. ACT 112: Negative or not required by law. Electronically signed by: Leif Arellano M.D. 06/15/2025 9:45 AM
--- NOTE | 2025-06-15 10:09 | History & Physical Report ---
Date of Service June 15, 2025 Assessment & Plan (1) Abdominal pain, LLQ: (2) Bloody stools: (3) Colitis: (4) Hyperlipidemia: (5) Hypothyroidism: (6) More than 50 percent stenosis of right internal carotid artery: (7) Acid reflux disease: (8) Abnormal electrocardiogram: Plan Ischemic colitis/infectious vs inflammatory colitis/LLQ abdominal pain - CTA abdomen negative for mesenteric vessel disease, bowel obstruction, or active GI bleed. Mild lauren-colonic inflammation noted - Sudden severe onset abdominal pain with 2 episodes of BRBPR, elevations in lactate and WBC: 14 w/o systemic symptoms - Hgb stable at 14, does not meet SIRS/Sepsis criteria - BioFire stool studies pending; consider C. diff stool toxin study if BioFire results negative - Tylenol 650mg Q6H for mild pain relief (1-5), morphine 2mg Q4H for moderate- severe pain (6-10) - NPO to allow for bowel rest, MIVF started NSS 125ml/hr - Abx coverage downgraded from IV Zosyn to IV Rocephin and IV Flagyl Asymptomatic bacteruria - UA positive for 3+ blood, 3+ bacteruria, no WBCs or nitrites - Urine culture ordered; continue to follow Abnormal EKG - NSR with more prominent t-wave inversions in V leads compared to prior EKG - Potentially due to L. ventricular hypertrophy vs ischemia, patient denies chest pain, pressure, or palpitations - continuous cardiac monitoring, admitted to med-surg w/ tele - TTE ordered Chronic problems: GERD: Continue PPI Hypothyroidism: Continue Levothyroxine HLD/HTN: Hold atorvastatin/Lisinopril History of Present Illness Chief Complaint: LLQ abdominal pain, rectal bleeding Primary Care Provider: Cari Ferrer DO Michelle Burleson is 70 y/o F with a past medical history of HTN, HLD, GERD, pre- diabetes, hypothyroidism, hx of breast carcinoma s/p lumpectomy and sentinel biopsy, 2 cm primary tumor. [place] node negative, several rounds of chemotherapy/radiation in 2014 w/ cancer in remission, last [facility] oncology appointment 3 years ago. Today patient reports that she woke around 2AM w/ severe abdominal pain 20/10 that was localized like a band around her lower abdomen, chills, and nausea. Patient reports that later she had a BM around 4AM that was bloody with reduced but still severe pain localized to her LLQ. After this the patient arrived to the ED with reduction of pain after pain control with multiple doses Fentanyl citrate and reports an additional bloody BM in the ED. At the time of my examination patient reports that her pain is now controlled 0/10 and with some mild residual tenderness in the LLQ that remains tender on palpation. Patient denies chest pain, palpitations, SOB, cough, wheeze, vomiting, fevers and resolution of her previous chills and nausea. Patient notes that she recently increased her lisinopril dosage from 20mg to 30mg with her PCP earlier this week. Patient is recently back from traveling to [facility]. Patient remains afebrile and hemodynamically stable. Allergies Allergy/AdvReac Type Severity Reaction Status Date / Time morphine Allergy Unknown NAUSEA AND Verified 05/17/25 10:55 VOMITNG Home Medications Medication Instructions Recorded Confirmed Type cholecalciferol (vitamin D3) 25 1,000 units PO DAILY #90 caps 06/16/19 06/15/25 Rx mcg (1,000 unit) capsule multivitamin 1 tab PO QAM #30 tabs 06/16/19 06/15/25 Rx vitamin E (dl, acetate) 180 mg 400 units PO DAILY #30 caps 06/16/19 06/15/25 Rx (400 unit) capsule acetaminophen 500 mg tablet 1,000 mg PO Q6H PRN Pain 01/05/20 06/15/25 History cetirizine 10 mg disintegrating 10 mg PO DAILY 01/05/20 06/15/25 History tablet aspirin 81 mg tablet,delayed 81 mg PO DAILY #90 tabs 01/31/20 06/15/25 Rx release (Adult Low Dose Aspirin) ondansetron 4 mg disintegrating 4 mg PO Q6 PRN nausea and vomiting 05/08/22 06/15/25 Rx tablet #20 tabs levothyroxine 50 mcg tablet 50 mcg PO DAILY #90 tabs 07/31/24 06/15/25 Rx (Synthroid) pantoprazole 40 mg tablet,delayed 40 mg PO DAILY PRN gerd #90 tabs 11/16/24 06/15/25 Rx release metformin 500 mg tablet,extended 500 mg PO DAILY #90 tabs 05/17/25 06/15/25 Rx release 24 hr lisinopril 30 mg tablet 30 mg PO DAILY #90 tabs 05/29/25 06/15/25 Rx amoxicillin 500 mg tablet 2,000 mg PO DIRECTED PRN dental 06/15/25 06/15/25 History jocelyn rosuvastatin 20 mg tablet 0 mg PO DAILY 06/15/25 06/15/25 History Past Med/Surg History Problem List (Updated 06/15/25 @ 09:46 by Raji Ames M.D.) Abdominal pain, LLQ (Acute) Bloody stools (Acute) Colitis (Acute) Prediabetes Postmenopausal Greater trochanteric bursitis of right hip Hypertension Abnormal electrocardiogram (Acute) Acid reflux disease (Acute) Adenomatous polyp of colon (Acute) Breast cancer (Acute) lumptectomy and xrt no medical therapy Hyperlipidemia (Acute) Hypothyroidism (Acute) More than 50 percent stenosis of right internal carotid artery (Acute) Medical History No pertinent past medical history Surgical History H/O partial mastectomy Status post hip replacement H/O dilation and curettage S/P tubal ligation H/O colonoscopy S/P appendectomy Family History Father Emphysema, unspecified Mother FH: colonic polyps Colonic polyp Sister FH: colonic polyps Colonic polyp Denies family history of Ovarian cancer Prostate cancer Myocardial infarction Breast cancer Colorectal cancer Social History Smoking Status: Never smoker Second Hand Exposure: No; Do You Dip or Chew Tobacco: No; Hx Alcohol Use: Yes Alcohol type: wine Alcohol Intake Frequency: 2-3 x/Week Hx Substance Use: No Preferred Language: Italian Communication Ability: Effective Visual Impairment: Limited Hearing Ability: Use of Hearing Aid Loom Fixer Required: No Beliefs That Will Affect Care: None marital status: Current Living Situation: Spouse current occupational status: retired How many Children do You have: 1 Feels Safe at Home: Yes Childhood Exposure to Second-Hand Smoke: Yes Diet: low salt and regular caffeine: No during the past year weight has: remained stable Dental Care, Regularly: Yes Physical Activity Frequency: 1-2 Times per Week Physical Activity Frequency Comment: Rides bike, walking Seatbelt Use: always Sunscreen Use: Yes Do you think of yourself as: straight/heterosexual Gender Identity: Female Assistive Devices: Glasses and Hearing Aid - Bilateral Physical Exam Physical Exam: General: patient resting comfortably, NAD, non-toxic in appearance, answers questions appropriately. Skin: warm, dry, intact HEENT: NC/AT, anicteric sclera, conjunctiva without injection, moist mucus membranes. Heart: +S1/S2, regular, no m/r/g Lungs: equal air entry bilaterally, no rales/rhonchi/wheezes Abd: +BS, soft, abdomen non-distended with pain on light/deep palpation of LLQ Ext: warm, no clubbing/cyanosis or edema Neuro: nonfocal, speech intact, no facial droop, moving all extremities. Results & Data Results & Data Vital Signs (Past 12 Hours) Vital Signs Temp Pulse Pulse Resp BP BP Pulse Ox 06/15/25 08:00 68 18 139/75 97 06/15/25 06:15 71 18 93 06/15/25 06:15 70 18 145/77 H 96 06/15/25 05:54 72 06/15/25 05:41 36.7 C 77 18 134/72 95 O2 Del Method 06/15/25 08:00 Room Air 06/15/25 06:15 Room Air 06/15/25 06:15 Room Air 06/15/25 05:54 06/15/25 05:41 Room Air Supervising Physician Co-Signing Physician Notes Attending Attestation and Admission Note: Pt seen/examined, chart reviewed, admission care plan d/w resident physician Dr Bassem Rivas. I agree w/ the rangel components of his admission documentation. 70yo female with history of HTN, Hyperlipidemia, GERD, pre-diabetes, hypothyroidism, breast cancer s/p lumpectomy/chemotherapy/radiation in 2015, and carotid artery stenosis who presents with acute onset of LLQ abdominal pain that awoke her from sleep about 0200 earlier today. Pain was quite severe. She then developed bright red bleeding per rectum (mixed with stool) an hour or two later. Some nausea. No fevers but has felt cold. Up until last evening she had been in her usual state of health with no recent illnesses. No sick contacts. No recent antibiotic usage. PMH/PSH/allergies/meds/sochx - reviewed VSS, afebrile gen - lying in bed, mildly uncomfortable but nontoxic appearing, pleasant mouth - MMM neck - no JVD heart - RRR, s1 s2, no murmur lungs - CTA b/l abd - soft, tender LLQ to palpation, BS+, ND, no peritoneal signs ext - no edema, feet slightly cool to touch, pulses 1-2+ b/l feet labs reviewed --> lactate elevated at 3.1 WBC elevated at [address] abd/pelvis - long segment of left-sided colitis extending from mid-transverse colon to sigmoid/rectum; celiac/SMA/PHI patent EKG - NSR, T wave inversions anterior leads A/P: 1. left-sided colitis - ischemic? infectious? no h/o ulcerative colitis. no evidence of diverticulitis. -if stool biofire and stool c diff are negative I would suspect that this is an episode of ischemic colitis (abrupt onset, bloody stools, elevated lactate, ischemic risk factors, etc) -plan: -NPO -generous IV fluids -pain meds -rocephin/flagyl empirically to prevent bacterial translocation -repeat lactate later today -repeat H/H later today for stability -if this was ischemic colitis -- etiology? SMA and PHI patent on CTA a/p today. Episode of hypotension (lisinopril dose just increased recently)? other? 2. abnormal EKG - no chest pain or other ischemic heart disease symptoms, but worth checking echo for LV function and wall motion 3. HTN - hold lisinopril; resume aspirin if H/H remain stable and bloody stool abates quickly 4. hypothyroidism - TSH wnl in 04/2025; cont synthroid 5. hypomagnesemia - 1.5; replace IV mag, repeat level later in stay Thom De Paz MD Resident Activity Tracking Resident Involvement: Resident Care Provided Care Provided: Adult Hospital Medicine (4) Hyperlipidemia Hyperlipidemia type: unspecified Qualified Code(s): E78.5 - Hyperlipidemia, unspecified (5) Hypothyroidism Hypothyroidism type: unspecified Qualified Code(s): E03.9 - Hypothyroidism, unspecified (7) Acid reflux disease Esophagitis presence: without esophagitis Qualified Code(s): K21.9 - Gastro- esophageal reflux disease without esophagitis
[2025-06-15] MEDS: PIPERACILLIN/TAZOBACTAM 4.5 GM/100 ML BAG IV ONE (10:27)
[2025-06-15 12:06] LABS: Adenovirus F 40/41 PCR Not Detected (NotDetected); Campylobacter PCR Not Detected (NotDetected); Enteroaggregative E.coli(EAEC) Not Detected (NotDetected); Shiga-like Toxin E.coli (STEC) Not Detected (NotDetected); Vibrio species PCR Not Detected (NotDetected)
[2025-06-15] MEDS ORDERED: ONDANSETRON INJ 2 MG/ML 2 ML VIAL IV PRN (14:13)
[2025-06-15] MEDS ORDERED: ONDANSETRON 4 MG OD TAB PO PRN (14:13)
[2025-06-15] MEDS: cefTRIAXone SODIUM 2,000 MG/50 ML BAG IV ONE (15:26)
[2025-06-15] MEDS: metroNIDAZOLE 500 MG/100 ML BAG IV ONE (15:26)
--- NOTE | 2025-06-15 15:43 | XCELERA ---
[id number] \\[id number]
[2025-06-15] MEDS: SODIUM CHLORIDE 0.9% 1,000 ML IV SCH (17:50)
[2025-06-15 18:41] LABS: Hematocrit (blood only) 41.2 % (37.0-47.0); Hemoglobin 13.8 g/dL (12.0-16.0)
--- NOTE | 2025-06-15 19:21 | Electrocardiogram Report ---
Test Reason : Blood Pressure : */* mmHG Vent. Rate : 78 BPM Atrial Rate : 78 BPM P-R Int : 174 ms QRS Dur : 80 ms QT Int : 388 ms P-R-T Axes : 54 -10 61 degrees QTcB Int : 442 ms Normal sinus rhythm Abnormal ECG When compared with ECG of 15-Nov-2017 13:54, Questionable change in QRS axis Nonspecific T wave abnormality now evident in Inferior leads T wave inversion more evident in Anterior leads Confirmed by Mo Villaseñor ([id number]) on 06/15/2025 7:20:30 PM Referred By: REFERRED SELF Confirmed By: Mo Villaseñor
[2025-06-15] MEDS: metroNIDAZOLE 500 MG/100 ML BAG IV SCH (21:47)
[2025-06-15] MEDS: ACETAMINOPHEN 325 MG TAB PO PRN (21:47)
[2025-06-15] MEDS: MELATONIN 3 MG TAB PO PRN (21:56)
[2025-06-16 05:33] LABS: Cdiff Toxin B Gene (2yr or >) Negative Cdiff Gene (Neg)
[2025-06-16] MEDS: LEVOTHYROXINE SODIUM 50 MCG TABLET PO SCH (06:08)
[2025-06-16] MEDS: CETIRIZINE HCL 10 MG TABLET PO SCH (08:18)
[2025-06-16 08:21] LABS: Hematocrit (blood only) 35.7 % (37.0-47.0); Hemoglobin 11.9 g/dL (12.0-16.0); Immature Granulocytes # (auto) 0.02 K/uL (0.01-0.20); Immature Granulocytes % (auto) 0.2 %; Mean Corpuscular Hemoglobin 29.1 pg (25.0-34.0); Mean Corpuscular Volume 87.3 fL (80.0-100.0); Platelet Count 174 K/uL (130-400); RDW Standard Deviation 45.0 fL (36.4-46.3); Red Blood Count 4.09 M/uL (4.20-5.40); White Blood Count 9.99 K/ul (4.8-10.8)
[2025-06-16] MEDS: MAGNESIUM SULFATE / D5W 1 GM/100 ML BAG IV SCH (08:22)
[2025-06-16 08:40] LABS: Anion Gap 8.0 (3-11); Blood Urea Nitrogen 17.0 mg/dl (6-23); Calcium 8.5 mg/dl (8.6-10.3); Carbon Dioxide 22.0 mmol/L (21-32); Chloride 111.0 mmol/L (98-107); Creatinine Clr Calc Pharmacy 82.8 ml/min; Glucose 135.0 mg/dl (70-99(Fasting)); Potassium 3.6 mmol/L (3.5-5.1); Sodium 141.0 mmol/L (136-145)
--- NOTE | 2025-06-16 09:18 | Hospitalist Progress Note ---
Date of Service June 16, 2025 Assessment & Plan (1) Abdominal pain, LLQ: (2) Bloody stools: (3) Colitis: (4) Hyperlipidemia: (5) Hypothyroidism: (6) More than 50 percent stenosis of right internal carotid artery: (7) Acid reflux disease: (8) Abnormal electrocardiogram: Plan Ischemic colitis/infectious vs inflammatory colitis/LLQ abdominal pain - CTA abdomen negative for mesenteric vessel disease, bowel obstruction, or active GI bleed. Mild lauren-colonic inflammation noted - Sudden severe onset abdominal pain with 2 episodes of BRBPR, elevations in lactate and WBC: 14 w/o systemic symptoms - Hgb stable at 14, does not meet SIRS/Sepsis criteria - BioFire stool studies pending; consider C. diff stool toxin study if BioFire results negative - Tylenol 650mg Q6H for mild pain relief (1-5), morphine 2mg Q4H for moderate- severe pain (6-10) - Abx coverage downgraded from IV Zosyn to IV Rocephin and IV Flagyl - Begin clear diet and advance as tolerated, stopped MIVF - Consider d/c tomorrow with GI f/u outpatient to discuss potential colonoscopy /further studies Asymptomatic bacteruria - UA positive for 3+ blood, 3+ bacteruria, no WBCs or nitrites - Urine culture ordered; NGTD Abnormal EKG - NSR with more prominent t-wave inversions in V leads compared to prior EKG - Potentially due to L. ventricular hypertrophy vs ischemia, patient denies chest pain, pressure, or palpitations - continuous cardiac monitoring, admitted to med-surg w/ tele - TTE ordered: EF within normal limits w/o wall motion abnormalities or concern for ischemia Chronic problems: GERD: Continue PPI Hypothyroidism: Continue Levothyroxine HLD/HTN: Hold atorvastatin/Lisinopril Admission and Anticipated Discharge Date Admission Date: June 15, 2025 Supervising Physician Co-Signing Physician Notes I personally examined the patient and verified all rangel points of history and exam, discussed case, and agree with decision making with Dr Rivas Feeling better but still some abdominal pain. Still some bloody stools. Notes she does not drink a lot. Vitals noted, in general she is awake and alert pleasant no distress. HEENT normocephalic atraumatic mucous membranes moist. Breathing unlabored no accessory muscle use good effort. Skin without rashes pallor or icterus. Neuro without focal deficits. Abdominal pain/hematocheziamost likely ischemic colitis. Improving. Continue current care. Encourage better p.o. fluid intake. Advance diet as tolerated. Otherwise as above Subjective Patient is seen resting comfortably at bedside this AM. Reports 0/10 abdominal pain currently but has noted intermittent LLQ pain overnight w/ brief fever and continued rectal bleeding. Patient denies feeling feverish, chills, nausea, and vomiting. Patient remains afebrile and hemodynamically stable. Physical Exam Physical Exam: General: patient resting comfortably, NAD, non-toxic in appearance, answers questions appropriately. Skin: warm, dry, intact HEENT: NC/AT, anicteric sclera, conjunctiva without injection, moist mucus membranes. Heart: +S1/S2, regular, no m/r/g Lungs: equal air entry bilaterally, no rales/rhonchi/wheezes Abd: +BS, soft, abdomen non-distended with pain on light/deep palpation of LLQ Ext: warm, no clubbing/cyanosis or edema Neuro: nonfocal, speech intact, no facial droop, moving all extremities. Results & Data Results & Data Vital Signs (Past 12 Hours) Vital Signs Temp Pulse Pulse Resp BP Pulse Ox O2 Del Method 06/16/25 08:21 36.8 C 84 16 126/74 94 Room Air 06/16/25 07:32 76 06/16/25 02:48 37.0 C 73 18 115/69 94 Room Air 06/15/25 22:48 37.4 C 84 18 114/63 93 Room Air Resident Activity Tracking Resident Involvement: Resident Care Provided Care Provided: Adult Hospital Medicine (4) Hyperlipidemia Hyperlipidemia type: unspecified Qualified Code(s): E78.5 - Hyperlipidemia, unspecified (5) Hypothyroidism Hypothyroidism type: unspecified Qualified Code(s): E03.9 - Hypothyroidism, unspecified (7) Acid reflux disease Esophagitis presence: without esophagitis Qualified Code(s): K21.9 - Gastro- esophageal reflux disease without esophagitis
--- NOTE | 2025-06-16 14:11 | Billing Data ---
Date of Service June 16, 2025 Coding Level of Care Code 31630 SUB INP/OBS CARE MIN
--- NOTE | 2025-06-16 14:11 | Billing Data ---
Date of Service June 16, 2025 Coding Level of Care Code 76253 SUB INP/OBS CARE MIN
[2025-06-16] MEDS: cefTRIAXone SODIUM 2,000 MG/50 ML BAG IV SCH (16:06)
--- NOTE | 2025-06-17 04:54 | Billing Data ---
Date of Service June 15, 2025 Coding Level of Care Code 93992 INT INP/OBS CARE
[2025-06-17 08:12] LABS: Hematocrit (blood only) 34.0 % (37.0-47.0); Hemoglobin 11.1 g/dL (12.0-16.0); Immature Granulocytes # (auto) 0.03 K/uL (0.01-0.20); Immature Granulocytes % (auto) 0.4 %; Mean Corpuscular Hemoglobin 29.1 pg (25.0-34.0); Mean Corpuscular Volume 89.0 fL (80.0-100.0); Platelet Count 157 K/uL (130-400); RDW Standard Deviation 44.6 fL (36.4-46.3); Red Blood Count 3.82 M/uL (4.20-5.40); White Blood Count 7.97 K/ul (4.8-10.8)
[2025-06-17 08:28] LABS: Anion Gap 7.0 (3-11); Blood Urea Nitrogen 11.0 mg/dl (6-23); Calcium 8.6 mg/dl (8.6-10.3); Carbon Dioxide 26.0 mmol/L (21-32); Chloride 106.0 mmol/L (98-107); Creatinine Clr Calc Pharmacy 95.6 ml/min; Glucose 114.0 mg/dl (70-99(Fasting)); Potassium 3.5 mmol/L (3.5-5.1); Sodium 139.0 mmol/L (136-145)
[2025-06-17] MEDS: ACETAMINOPHEN 500 MG TAB PO SCH (08:31)
--- NOTE | 2025-06-17 09:09 | Hospitalist Progress Note ---
Date of Service June 17, 2025 Assessment & Plan (1) Abdominal pain, LLQ: (2) Bloody stools: (3) Colitis: (4) Hyperlipidemia: (5) Hypothyroidism: (6) More than 50 percent stenosis of right internal carotid artery: (7) Acid reflux disease: (8) Abnormal electrocardiogram: Plan Ischemic colitis/infectious vs inflammatory colitis/LLQ abdominal pain - CTA abdomen negative for mesenteric vessel disease, bowel obstruction, or active GI bleed. Mild lauren-colonic inflammation noted - Sudden severe onset abdominal pain with 2 episodes of BRBPR, elevations in lactate and WBC: 14 w/o systemic symptoms - Hgb stable at 14, does not meet SIRS/Sepsis criteria - BioFire stool studies pending; consider C. diff stool toxin study if BioFire results negative - Tylenol 650mg Q6H for mild pain relief (1-5), morphine 2mg Q4H for moderate- severe pain (6-10) - Abx coverage downgraded from IV Zosyn to IV Rocephin and IV Flagyl - Begin clear diet and advance as tolerated, stopped MIVF - Consider d/c with GI f/u outpatient to discuss potential colonoscopy/further studies; last colonoscopy was completed in 2022 with removal of one polyp w/ 5 year repeat Asymptomatic bacteruria - UA positive for 3+ blood, 3+ bacteruria, no WBCs or nitrites - Urine culture ordered; NGTD Abnormal EKG - NSR with more prominent t-wave inversions in V leads compared to prior EKG - Potentially due to L. ventricular hypertrophy vs ischemia, patient denies chest pain, pressure, or palpitations - continuous cardiac monitoring, admitted to med-surg w/ tele - TTE ordered: EF within normal limits w/o wall motion abnormalities or concern for ischemia Chronic problems: GERD: Continue PPI Hypothyroidism: Continue Levothyroxine HLD/HTN: Hold atorvastatin/Lisinopril Admission and Anticipated Discharge Date Admission Date: June 15, 2025 Supervising Physician Co-Signing Physician Notes I personally examined the patient and verified all rangel points of history and exam, discussed case, and agree with decision making with Dr Rivas overall improving. did have a bout of severe abdominal pain overnight but it was short lived and none since. no further hematochezia. reiterated with her (and sister) the need to drink more fluids. Vitals noted, in general she is aw chandler and alert pleasant no distress. HEENT normocephalic atraumatic mucous membranes moist. Breathing unlabored no accessory muscle use good effort. Skin without rashes pallor or icterus. Neuro without focal deficits. Abdominal pain/hematocheziamost likely ischemic colitis. Improving. Continue current care. Encouraged better p.o. fluid intake again. Advance diet as tolerated. hopefully home tomorrow (would like to see better overall pain control before she goes home) Otherwise as above Subjective Patient is seen resting comfortably at bedside this AM. Patient reports continued mild LLQ pain and one episode of severe pain 8/10 overnight. Patient denies feeling feverish, chills, nausea, and vomiting. Patient is tolerating a d iet well and reports no feelings of bloating, nausea, or abdominal pain while eating. Patient reports that bloody stools have resolved. Patient remains afebrile and hemodynamically stable. Physical Exam Physical Exam: General: patient resting comfortably, NAD, non-toxic in appearance, answers questions appropriately. Skin: warm, dry, intact HEENT: NC/AT, anicteric sclera, conjunctiva without injection, moist mucus membranes Heart: +S1/S2, regular, no m/r/g Lungs: equal air entry bilaterally, no rales/rhonchi/wheezes Abd: +BS, soft, abdomen non-distended with pain on light/deep palpation of LLQ Ext: warm, no clubbing/cyanosis or edema Neuro: nonfocal, speech intact, no facial droop, moving all extremities Results & Data Results & Data Vital Signs (Past 12 Hours) Vital Signs Temp Pulse Pulse Resp BP BP Pulse Ox 06/17/25 08:40 36.6 C 62 17 132/63 96 06/17/25 07:41 06/17/25 03:28 37.1 C 65 16 102/48 L 93 06/16/25 23:29 37 C 69 18 115/51 L 95 06/16/25 21:33 68 O2 Del Method 06/17/25 08:40 Room Air 06/17/25 07:41 Room Air 06/17/25 03:28 Room Air 06/16/25 23:29 Room Air 06/16/25 21:33 Resident Activity Tracking Resident Involvement: Resident Care Provided Care Provided: Adult Hospital Medicine (4) Hyperlipidemia Hyperlipidemia type: unspecified Qualified Code(s): E78.5 - Hyperlipidemia, unspecified (5) Hypothyroidism Hypothyroidism type: unspecified Qualified Code(s): E03.9 - Hypothyroidism, unspecified (7) Acid reflux disease Esophagitis presence: without esophagitis Qualified Code(s): K21.9 - Gastro- esophageal reflux disease without esophagitis
--- NOTE | 2025-06-17 13:01 | Billing Data ---
Date of Service June 17, 2025 Coding Level of Care Code 59303 SUB INP/OBS CARE MIN
[2025-06-18 08:43] LABS: Hematocrit (blood only) 34.6 % (37.0-47.0); Hemoglobin 11.6 g/dL (12.0-16.0); Immature Granulocytes # (auto) 0.02 K/uL (0.01-0.20); Immature Granulocytes % (auto) 0.4 %; Mean Corpuscular Hemoglobin 29.0 pg (25.0-34.0); Mean Corpuscular Volume 86.5 fL (80.0-100.0); Platelet Count 179 K/uL (130-400); RDW Standard Deviation 42.0 fL (36.4-46.3); Red Blood Count 4.00 M/uL (4.20-5.40); White Blood Count 5.10 K/ul (4.8-10.8)
[2025-06-18 09:14] LABS: Anion Gap 9.0 (3-11); Blood Urea Nitrogen 8.0 mg/dl (6-23); Calcium 8.9 mg/dl (8.6-10.3); Carbon Dioxide 26.0 mmol/L (21-32); Chloride 106.0 mmol/L (98-107); Creatinine Clr Calc Pharmacy 109.7 ml/min; Glucose 97.0 mg/dl (70-99(Fasting)); Potassium 3.3 mmol/L (3.5-5.1); Sodium 141.0 mmol/L (136-145)
[2025-06-18] MEDS: POTASSIUM CHLORIDE 10 MEQ TABCR PO SCH (09:41)
[2025-06-18 09:55] LABS: Cholesterol 107.0 mg/dl (0-200); HDL Cholesterol 42.0 mg/dl; Triglycerides 114.0 mg/dl (0-150)
[2025-06-18 11:32] VITALS: TEMP 98.6
--- NOTE | 2025-06-18 12:21 | Discharge Summary ---
Date of Service June 18, 2025 Admission HPI Per Admitting Provider Michelle Burleson is 70 y/o F with a past medical history of HTN, HLD, GERD, pre- diabetes, hypothyroidism, hx of breast carcinoma s/p lumpectomy and sentinel biopsy, 2 cm primary tumor. Stanley node negative, several rounds of chemotherapy/radiation in 2014 w/ cancer in remission, last [facility] oncology appointment 3 years ago. Today patient reports that she woke around 2AM w/ severe abdominal pain 20/10 that was localized like a band around her lower abdomen, chills, and nausea. Patient reports that later she had a BM around 4AM that was bloody with reduced but still severe pain localized to her LLQ. After this the patient arrived to the ED with reduction of pain after pain control with multiple doses Fentanyl citrate and reports an additional bloody BM in the ED. At the time of my examination patient reports that her pain is now controlled 0/10 and with some mild residual tenderness in the LLQ that remains tender on palpation. Patient denies chest pain, palpitations, SOB, cough, wheeze, vomiting, fevers and resolution of her previous chills and nausea. Patient notes that she recently increased her lisinopril dosage from 20mg to 30mg with her PCP earlier this week. Patient is recently back from traveling to [facility]. Patient remains afebrile and hemodynamically stable. Admission Exam Per Admitting Provider General: patient resting comfortably, NAD, non-toxic in appearance, answers questions appropriately. Skin: warm, dry, intact HEENT: NC/AT, anicteric sclera, conjunctiva without injection, moist mucus membranes. Heart: +S1/S2, regular, no m/r/g Lungs: equal air entry bilaterally, no rales/rhonchi/wheezes Abd: +BS, soft, abdomen non-distended with pain on light/deep palpation of LLQ Ext: warm, no clubbing/cyanosis or edema Neuro: nonfocal, speech intact, no facial droop, moving all extremities Principal Diagnosis Ischemic colitis. Discharge Exam General: patient resting comfortably, NAD, non-toxic in appearance, answers questions appropriately. Skin: warm, dry, intact HEENT: NC/AT, anicteric sclera, conjunctiva without injection, moist mucus membranes. Heart: +S1/S2, regular, no m/r/g Lungs: equal air entry bilaterally, no rales/rhonchi/wheezes Abd: +BS, soft, abdomen non-distended with pain on light/deep palpation of LLQ Ext: warm, no clubbing/cyanosis or edema Neuro: nonfocal, speech intact, no facial droop, moving all extremities Discharge Data Allergies Allergy/AdvReac Type Severity Reaction Status Date / Time morphine Allergy Unknown NAUSEA AND Verified 05/17/25 10:55 VOMITNG Consultations 06/15/25 09:59 ED Decision to Admit Stat Ordered Studies 06/15/25 06:43 CT angio abdomen pelvis w con Stat Hospital Course (1) Abdominal pain, LLQ: (2) Bloody stools: (3) Colitis: (4) Hyperlipidemia: (5) Hypothyroidism: (6) More than 50 percent stenosis of right internal carotid artery: (7) Acid reflux disease: (8) Abnormal electrocardiogram: Plan Ischemic colitis/infectious vs inflammatory colitis/LLQ abdominal pain - CTA abdomen negative for mesenteric vessel disease, bowel obstruction, or active GI bleed. Mild lauren-colonic inflammation noted - Sudden severe onset abdominal pain with 2 episodes of BRBPR, elevations in lactate and WBC: 14 w/o systemic symptoms - Abx coverage downgraded from IV Zosyn to IV Rocephin and IV Flagyl PLAN: Complete Augmentin and Flagyl for 10 days total Follow up with GI Continue low fibre diet. Total Time Total Time Spent Total Time Spent (In Minutes): See attending's attestation Discharge Plan Discharge Items Patient Disposition: Home - Self-Care Reason For Visit: LLQ ABDOMINAL PAIN, RECTAL BLEEDING Discharge Diagnosis: Ischemic Colitis. Condition on Discharge: Fair Activity: Resume your previous activity Non-emergency contact: Primary Care Provider and Athletics Teacher Call non-emergency contact if: your symptoms worsen Follow-up/Referrals: Cari Ferrer DO [Primary Care Provider] - 06/26/25 10:30 am Diet: Low Fiber Addtl Attending Provider Instructions: You were admitted to the hospital for Left lower abdominal pain, ultimately diagnosed as having ischemic colitis, i.e a part of your colon is not getting enough blood supply. You were treated with bowel rest, graded diet once stable and IV antibiotics. You improved in pain with no nausea, vomiting, able to tolerate food, hence we planned for discharge. A little bit of blood or pinkish poop is expected in your situation as inside lining of you colon is expected to shed because of poor blood supply, however IF YOU HAVE ANY EMERGENT BLEEDING WHICH IS CONTINUOUS, BIG VOLUME and THAT MAKES YOU LIGHTHEADED OR LIKELY PASSING OUT, THIS WOULD NOT BE NORMAL. Please visit ED in that situation. Otherwise it takes few weeks to heal you colon, you are expected to have some pain, but if it is severe enough, you are recommended to visit ED as well. Meanwhile please keep up with low fibre diet, can increase diet depending on your symptoms, as you tolerate. If pain worsens, downgrade to liquid diet. Avoid seeds/ nuts for time being. Please schedule f.u appointment with GI team. A discharge summary will be sent to your primary care physician to ensure continuity of care. Please bring this discharge summary with you to your next office appointment so that your provider can review it at that time. Medications: Your medication list has been reviewed and reconciled upon discharge to ensure accuracy and continuity of care. An updated list of all your medications is included with your hospital discharge paperwork. Please review this list closely and make note of any changes to your medications. 1. Flagyl 500 mg TID for 7 days. 2. Augmentin 875 mg BID for 7 days. Follow up appointments: - Make a follow up appointment with your PCP within the next week. It is very important that you follow up with them shortly after discharge from the hospital. - Keep all of your follow up appointments as already scheduled. If you cannot make an appointment, notify your provider. CONTACT YOUR PRIMARY CARE PROVIDER if you experience any of the following: - Difficulty following your treatment plan - Difficulty taking any of your medications CALL 911 OR GO TO THE EMERGENCY DEPARTMENT if you experience any of the following: - Pain abdomen worsening, passing grossly bloody stool frequently. Little bit of blood/ pink stool is expected. - Sudden, severe abdominal pain or nausea/vomiting - Severe chest pain or chest pain that radiates to your jaw or arm - Sudden, severe shortness of breath or difficulty breathing Pending Studies at Discharge: No Stand-Alone Forms: My [employer], Smoking Cessation Medications and DC Order Prescriptions: New potassium chloride 10 mEq tablet extended release 10 meq PO DAILY Qty: 7 0RF amoxicillin-pot clavulanate 875-125 mg tablet 1 tab PO BID 7 Days Qty: 14 0RF metronidazole 500 mg tablet 500 mg PO Q8H 7 Days Qty: 21 0RF Continued aspirin [Adult Low Dose Aspirin] 81 mg tablet,delayed release (DR/EC) 81 mg PO DAILY Qty: 90 3RF Patient Comments: 06/14- otc unable to verify levothyroxine [Synthroid] 50 mcg tablet 50 mcg PO DAILY Qty: 90 3RF lisinopril 30 mg tablet 30 mg PO DAILY Qty: 90 3RF vitamin E (dl, acetate) 400 unit capsule 400 units PO DAILY Qty: 30 0RF Patient Comments: 06/14- otc unable to verify multivitamin tablet 1 tab PO QAM Qty: 30 0RF Patient Comments: 06/14- otc unable to verify cholecalciferol (vitamin D3) 25 mcg (1,000 unit) capsule 1,000 units PO DAILY Qty: 90 0RF Patient Comments: 06/14- otc unable to verify acetaminophen 500 mg tablet 1,000 mg PO Q6H PRN (Reason: Pain) Patient Comments: 06/14- otc unable to verify cetirizine 10 mg tablet,disintegrating 10 mg PO DAILY Patient Comments: 06/14- otc unable to verify metformin 500 mg tablet extended release 24 hr 500 mg PO DAILY Qty: 90 3RF pantoprazole 40 mg tablet,delayed release (DR/EC) 40 mg PO DAILY PRN (Reason: gerd) Qty: 90 3RF Patient Comments: 06/15- last filled 11/16 90 day supply #90 ondansetron 4 mg tablet,disintegrating 4 mg PO Q6 PRN (Reason: nausea and vomiting) Qty: 20 0RF amoxicillin 500 mg tablet 2,000 mg PO DIRECTED PRN (Reason: dental jocelyn) Patient Comments: 06/14-no fill history unable to verify Rx Instructions: 4 tabs 1 hour prior to procedure rosuvastatin 20 mg tablet 0 mg PO DAILY Patient Comments: 06/15-last filled 01/08 90 day supply #90 Discharge Orders: Discharge Order (Routine); Ordered 06/18/25 Ordered By: Alivia Johnson/Other Patient Handouts: Low-Fiber Diet, Ischemic Colitis Admission Data Admit Date/Time: 06/15/25 11:04 Attending Provider: Rod Panchal Admit Provider: Bassem Rivas Primary Care Provider: Cari Ferrer Other Providers: Thom De Paz Other Interventions: Discharge Summary Assessment (RN) Last Done: 06/18/25 16:02 Supervising Physician Co-Signing Physician Notes Resident Physician Supervision Note: I personally examined the patient and verified all rangel points of history and exam, discussed case, and agree with decision making with Dr. Spencer I evaluated the patient independently while she was eating lunch she is having no complaints or problems. She was slightly apprehensive but later in the day upon recheck resident service feels patient is stable to go home. Patient is agreeable. Subsequently she was discharged with outpatient follow-up I discussed the case with the resident and agree with the findings and plan as documented in the note. Any exceptions or clarifications are listed here: Documented By: Rod Panchal MD Resident Activity Tracking Resident Involvement: Resident Care Provided Care Provided: Adult Hospital Medicine
[2025-06-18 15:48] VITALS: BP 148/73; RESP 16; O2SAT 95
[2025-06-18 16:00] VITALS: PULSE 80
--- NOTE | 2025-06-19 07:30 | Billing Data ---
Date of Service June 19, 2025 Coding Level of Care Code 06401 IN/OBS DISCH 30 MIN/LESS
== END 2025-06-18 16:35 | disposition home or self-care (01) | DRG 395 ==
LOC: ED 05:35 → SUATTDRO 11:04 → EDINP 11:04 → INTOOBSV 11:04 → EDINP 14:12 → 2N 16:13